=== PATIENT | male | born 1985 | race Caucasian/White ===

== ENCOUNTER 2016-09-22 07:58 | Emergency (ER) | payer MEDICARE, OTHER ==
[2016-09-22 08:14] VITALS: BP 140/79
[2016-09-22] MEDS ORDERED: DIPHTH,PERTUSS(ACELL),TET VAC 0.5 ML VIAL IM ONE ×2 (08:19→08:22)
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
--- OUTSIDE RECORDS SUMMARY | 2016-09-22 08:53 | XMS REPORT | Continuity of Care Document ---
:1985 Author Organization [facility] ([facility]) Address [address] [place] [address] Phone [phone] Care Team Providers Name Role Phone [phone], Need To Check Primary Care Provider Unavailable Source Comments This disclosure is being made pursuant to the Care Everywhere program, applicable federal and state laws, and may not contain all informaitonavailable regarding this patient.[facility] ([facility]) Active Allergies and Adverse Reactions Not on File Current Medications Not on file Active Problems Not on file Social History Tobacco Use Types Packs/Day Years Used Date Never Assessed Last Filed Vital Signs Vital Sign Reading Time Taken Blood Pressure - - Pulse - - Temperature - - Respiratory Rate - - Height 1.524 m (5') 11/16/2004 8:28 PM CDT Weight 78.064 kg (172 lb 1.6 oz) 11/16/2004 8:28 PM CDT Body Mass Index 33.61 11/16/2004 8:28 PM CDT Oxygen Saturation - - Plan of Care Health Maintenance Due Date Last Done Comments Hepatitis B Vaccine (1 of 3 - Primary Series) 1985 Tdap Vaccine 1996 Lipid Disorder Screening 08/13/2003 MMR Vaccine 08/13/2003 Td Vaccine 08/13/2003 Varicella Vaccine (1 of 2 - Adult - No Evidence of 08/13/2003 Immunity) Influenza Vaccine: Seasonal (#1) 11/20/2015 Results from Last 3 Months Not on file
== END 2016-09-22 09:00 | disposition home or self-care (01) ==
LOC: ER 07:58
DX: S60.221A Contusion of right hand, initial encounter (principal); Z23 Encounter for immunization; X58.XXXA Exposure to other specified factors, initial encounter; Y93.89 Activity, other specified; Y92.9 Unspecified place or not applicable; S60.511A Abrasion of right hand, initial encounter